=== PATIENT | female | born 1985 | race Caucasian/White ===

== ENCOUNTER 2016-11-04 09:15 | Emergency (ER) | payer OTHER ==
[2016-11-04 09:21] VITALS: BP 114/65; BMI 19.1
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
--- NOTE | 2016-11-04 09:49 | RAD ---
Examination: X-rays of the left foot. Clinical history: Injury of left foot, pain, edema and bruising. Technique: Three views of the left foot were obtained. Comparison: None available. Findings: There are minimally displaced fractures of the distal 3rd and 4th metatarsal bones, with a nondisplac ed fracture of the distal 2nd metatarsal bone also noted. No additional bony or soft tissue abnormality is noted. Impression: 1. Fractures of the distal 2nd, 3rd and 4th metatarsal bones, as described above. Reported By:
== END 2016-11-04 10:32 | disposition home or self-care (01) ==
LOC: EDBD 09:29 → ER 09:29
DX: S92.302A Fracture of unspecified metatarsal bone(s), left foot, initial encounter for closed fracture (principal); Y04.0XXA Assault by unarmed brawl or fight, initial encounter; Y92.9 Unspecified place or not applicable
CPT/HCPCS: 29515; 73630; 99282